=== PATIENT | male | born 1980 | race Caucasian/White ===

== ENCOUNTER 2022-02-25 05:27 | Observation (INO) ==
[2022-02-25] MEDS ORDERED: *HR* HYDROcodone/Acet 5/325 mg TABLET PO PRN (08:17)
[2022-02-25] MEDS ORDERED: Ondansetron 4 MG/2 ML VIAL IVP PRN (08:17)
[2022-02-25] MEDS ORDERED: Naloxone 0.4 MG/ML INJ IVP PRN (08:17)
[2022-02-25] MEDS: *HR* OxyCODONE Immed Rel 5 MG TABLET PO PRN ×2 (09:10→23:28)
[2022-02-25] MEDS: levoFLOXacin 750 MG TABLET PO SCH (09:10)
[2022-02-25] MEDS ORDERED: *HR* HYDROmorphone (PF) 1 MG/ML SYRINGE IVP ONE (12:17)
[2022-02-26 03:18] LABS: BUN/Creatinine Ratio 15 (6-26); Blood Urea Nitrogen 11 mg/dL (6-20); Calcium 8.3 mg/dL (8.6-10.3); Carbon Dioxide 29 mEq/L (23-29); Chloride 105 mEq/L (98-107); Glucose 103 mg/dL (70-105); Magnesium 1.9 mg/dL (1.6-2.6); Osmolality,Calculated 284 (280-300); Phosphorous 2.5 mg/dL (2.7-4.5); Potassium 4.4 mEq/L (3.5-5.1); Sodium 137 mEq/L (136-145)
[2022-02-26] MEDS ORDERED: *HR* Succinylcholine 200 MG/10 ML VIAL IVP ONE (07:15)
[2022-02-26] MEDS ORDERED: Lidocaine -MPF 2% 5 ML VIAL ONE (07:15)
[2022-02-26] MEDS ORDERED: *HR* Rocuronium Bromide 50 MG/5 ML VIAL ONE (07:15)
[2022-02-26] MEDS ORDERED: *HR* Propofol 200 MG/20 ML VIAL IVP ONE (07:15)
[2022-02-26] MEDS ORDERED: Ondansetron 4 MG/2 ML VIAL ONE (07:15)
[2022-02-26] MEDS ORDERED: *HR* FentaNYL (PF) 100 MCG/2 ML VIAL ONE (07:15)
[2022-02-26] MEDS ORDERED: *HR* Midazolam HCl 2 MG/2 ML VIAL ONE (07:15)
[2022-02-26] MEDS ORDERED: Iopamidol - 300 50 ML VIAL ONE (07:19)
[2022-02-26] MEDS ORDERED: *HR* Labetalol 20 MG/4 ML SYRINGE IVP ONE (08:28)
[2022-02-26] MEDS: *HR* Labetalol 20 MG/4 ML SYRINGE IVP PRN ×2 (08:29→08:43)
[2022-02-26] MEDS ORDERED: cloNIDine HCL 0.1 MG TABLET PO ONE (09:55)
[2022-02-26] MEDS ORDERED: cloNIDine HCL 0.1 MG TABLET ONE (09:55)
[2022-02-26] MEDS ORDERED: *HR* HYDROmorphone (PF) 1 MG/ML SYRINGE IVP ONE (09:57)
[2022-02-26] MEDS ORDERED: Naloxone 0.4 MG/ML INJ IVP PRN (11:48)
[2022-02-26] MEDS ORDERED: Ondansetron 4 MG/2 ML VIAL IVP PRN (11:48)
[2022-02-26] MEDS ORDERED: *HR* HYDROcodone/Acet 5/325 mg TABLET PO PRN (11:48)
[2022-02-26] MEDS: levoFLOXacin 750 MG TABLET PO SCH (11:59)
[2022-02-26] MEDS: *HR* OxyCODONE Immed Rel 5 MG TABLET PO PRN ×2 (11:59→18:32)
[2022-02-26] MEDS: amLODIPine 5 MG TABLET PO SCH (14:43)
[2022-02-26] MEDS: Metoprolol XL (24 HR) Succ 50 MG TAB.ER.24H PO SCH (14:43)
[2022-02-26] MEDS ORDERED: Ketorolac 30 MG/ML VIAL IVP PRN (17:13)
[2022-02-26] MEDS ORDERED: Acetaminophen 325 MG TABLET PO PRN (17:14)
[2022-02-26] MEDS: 0.9 % Sodium Chloride 1,000 ML IVC SCH (18:19)
[2022-02-27] MEDS ORDERED: *HR* Enoxaparin 40 MG/0.4 ML SYRINGE SQ SCH (06:00)
[2022-02-27] MEDS: *HR* OxyCODONE Immed Rel 5 MG TABLET PO PRN (06:18)
[2022-02-27 08:09] VITALS: BP 161/96; PULSE 68; TEMP 97.8; O2SAT 95
[2022-02-27] MEDS ORDERED: levoFLOXacin 750 MG TABLET PO SCH (09:00)
[2022-02-27] MEDS: 0.9 % Sodium Chloride 1,000 ML IVC SCH (10:09)
[2022-02-27] MEDS: Metoprolol XL (24 HR) Succ 50 MG TAB.ER.24H PO SCH (10:10)
[2022-02-27] MEDS: amLODIPine 5 MG TABLET PO SCH (10:11)
== END 2022-02-27 10:30 | disposition home or self-care (01) ==
LOC: 2ANU → SUATTDRO 06:52
PROVIDERS: ADMIT Internal Medicine; ATTEND Internal Medicine